=== PATIENT | female | born 1955 | race Caucasian/White ===

== ENCOUNTER 2018-09-01 08:36 | Day surgery (SDC) | payer OTHER, MEDICAID ==
[2018-09-01] MEDS ORDERED: PROPOFOL 40 ML (10:07)
[2018-09-01] MEDS ORDERED: LIDOCAINE 2% (SDV) 5 ML INJ (10:07)
[2018-09-01] MEDS ORDERED: FENTAnyl 50 MCG/ML VIAL IV (10:30)
[2018-09-01] MEDS ORDERED: ONDANSETRON 4 MG INJ IV (10:30)
[2018-09-01] MEDS ORDERED: ACETAMINOPHEN 500 MG TAB PO (10:30)
[2018-09-01] MEDS ORDERED: ALBUTEROL 0.083% (NEB) 2.5 MG/3 ML AMP HHN (10:30)
== END 2018-09-01 12:08 | disposition home or self-care (01) ==
LOC: GIL 08:36
DX: Z12.11 Encounter for screening for malignant neoplasm of colon (principal); K64.4 Residual hemorrhoidal skin tags
CPT/HCPCS: 45380; 88305